=== PATIENT | male | born 2000 | race Caucasian/White ===

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

== ENCOUNTER 2022-04-25 20:17 | Emergency (ER) | payer MEDICAID ==
[2022-04-25 20:39] VITALS: BP 131/73; PULSE 80; RESP 18; TEMP 98.6
--- NOTE | 2022-04-25 21:16 | XR ---
EXAMINATION TYPE: XR ankle complete RT DATE OF EXAM: 04/25/2022 8:55 PM INDICATION: Patient age:Male; 21 years old; Reason for study: pain; COMPARISON: None TECHNIQUE: The right ankle is imaged in frontal, lateral and oblique projections. FINDINGS: There is no evidence of acute osseous pathology. The joint spaces are well-preserved without evidenc e of subluxation or dislocation. Kager's fat pad is intact. Mild soft tissue swelling around the late ral ankle. No radiopaque foreign bodies are identified. IMPRESSION: 1. No evidence of acute fracture. 2. Subcutaneous swelling around the lateral ankle likely secondary to underlying soft tissue injury.
--- NOTE | 2022-04-25 21:36 | ED ---
Lower Extremity Injury HPI - General Chief Complaint: Extremity Injury, Lower Stated Complaint: Right ankle injury Source: patient, family, RN notes reviewed Mode of arrival: ambulatory Limitations: no limitations - History of Present Illness Initial Comments: Patient is a 21-year-old male presents to the emergency room complaints of pain and swelling to his right ankle primarily to the lateral aspect. He reports that he was playing basketball earlier today will and after jumping up he landed awkwardly and he believes that his ankle may have struck the ground. He is a history of fracture and multiple sprains to this ankle consequently he already has an ankle brace and crutches which he came in with. He denies any range of motion impairment not related to swelling. He denies any popping or locking of the joint. He is no other significant past medical history. - Related Data Allergies Allergy/AdvReac Type Severity Reaction Status Date / Time No Known Allergies Allergy Verified 04/25/22 20:40 Review of Systems ROS Statement: Those systems with pertinent positive or pertinent negative responses have been documented in the HPI. ROS Other: All systems not noted in ROS Statement are negative. Past Medical History Past Medical History: No Reported History History of Any Multi-Drug Resistant Organisms: None Reported Past Surgical History: No Surgical Hx Reported Past Psychological History: No Psychological Hx Reported Smoking Status: Never smoker Past Alcohol Use History: None Reported Past Drug Use History: None Reported General Exam Limitations: no limitations General appearance: alert, in no apparent distress Head exam: Present: atraumatic, normocephalic, normal inspection Eye exam: Present: normal appearance, PERRL, EOMI. Absent: scleral icterus, conjunctival injection, periorbital swelling ENT exam: Present: normal exam, mucous membranes moist Neck exam: Present: normal inspection Respiratory exam: Absent: respiratory distress, accessory muscle use Cardiovascular Exam: Present: regular rate GI/Abdominal exam: Absent: distended Right Ankle exam: Present: full ROM, tenderness (Lateral aspect), swelling (lateral aspect). Absent: abrasion, laceration, ecchymosis, deformity, crepitus, dislocation Neurovascular tendon exam: Present: no vascular compromise Gait: observed and limited by pain Back exam: Present: normal inspection Neurological exam: Present: alert, oriented X3, CN II-XII intact Psychiatric exam: Present: normal affect, normal mood Skin exam: Present: warm, dry, intact, normal color. Absent: rash Course Vital Signs 04/25/22 20:38 Temperature 98.6 F Pulse Rate 80 Respiratory 18 Rate Blood Pressure 131/73 O2 Sat by Pulse 99 Oximetry Medical Decision Making - Medical Decision Making 21-year-old male presenting to the emergency room with right ankle pain and swelling after landing awkwardly while playing basketball. X-ray of the right ankle completed showing soft tissue swelling no evidence of fracture or dislocation. Has Aircast brace and Motrin 800 at home no need for new prescription for either; advised to continue to utilize both. Will discharge home with follow-up with his primary care provider in 7-10 days for repeat imaging of continued swelling and pain. Advised will keep off work for 24 hours and sprain recommendations reviewed. Case discussed with Dr. Khan. Disposition Clinical Impression: Sprain and strain of ankle Disposition: HOME SELF-CARE Condition: Fair Instructions (If sedation given, give patient instructions): Ankle Sprain (ED) Additional Instructions: Please continue to take ibuprofen or Tylenol as needed for pain. Continue application of ice to the ankle for the next 48 hours and then may alternate ice or heat not greater than 20 minutes at a time every 2-3 hours. Please follow-up with your primary care provider in 7-10 days if swelling and pain continues. Continue to utilize previously prescribed ankle brace for sports activities once ankle pain has improved. Range of motion as tolerated encouraged. Please return to the Emergency Department if symptoms worsen or any other concerns. Is patient prescribed a controlled substance at d/c from ED?: No Referrals: Feliberto Torres MD [Primary Care Provider] - 1-2 days Time of Disposition: 21:35
== END 2022-04-25 21:53 | disposition home or self-care (01) ==
LOC: EC 20:17
DX: S93.401A Sprain of unspecified ligament of right ankle, initial encounter (principal); S96.911A Strain of unspecified muscle and tendon at ankle and foot level, right foot, initial encounter; X50.0XXA Overexertion from strenuous movement or load, initial encounter; Y93.67 Activity, basketball
CPT/HCPCS: 99283